=== PATIENT | female | born 1975 | race Two or more races ===

== ENCOUNTER 2017-11-24 07:58 | Day surgery (SDC) | payer OTHER ==
[2017-11-23 16:50] VITALS: BMI 24.6
--- NOTE | 2017-11-24 09:10 | HP ---
History & Physical Update - History History: No Change - Physical Physical: No Change - Assessment Assessment: No Change - Plan Plan: No Change (Patient with a nodule in right lobe of thyroid, highly suspiciousm for malignancy. Thyroid lobectomy , possible total thyroidectomy, with modified neck dissection, planned.)
[2017-11-24] MEDS ORDERED: ONDANSETRON 4 MG/2 ML VIAL IVPUSH PRN ×2 (09:29→12:02)
[2017-11-24] MEDS ORDERED: PROMETHAZINE HCL 25 MG/1 ML VIAL IVPUSH PRN (09:29)
[2017-11-24] MEDS ORDERED: PROMETHAZINE HCL 25 MG/1 ML VIAL IVPB PRN ×2 (09:39→12:02)
[2017-11-24] MEDS ORDERED: ACETAMINOPHEN INJECTION 100 ML IVPB ONE ×2 (11:11→12:21)
[2017-11-24] MEDS ORDERED: ACETAMINOPHEN 1000 MG/100 ML VIAL (NON FORMULARY) IVPB ONE (12:03)
--- NOTE | 2017-11-24 12:04 | OP ---
Operative Note - Note: Operative Date: 11/24/17 Pre-Operative Diagnosis: Thyroid nodule, ? suspicious for malignancy. Operation: Right thyroid lobectomy with frozen section. Use of Nervana nerve monitor. Findings: Large nodule at the right inferior pole if the thyroid gland, about 2 cms in diameter. Frozen section : Follicular neoplasm, wait for permanent section. Post-Operative Diagnosis: Same as Pre-op Surgeon: Catherine Saleem Anesthesiologist/REMOTE INPATIENT CODER: Landy Francisco Anesthesia: General Specimens Removed: Right lobe of thyroid, with isthmus. Estimated Blood Loss (mls): 20 Operative Report Dictated: Yes
[2017-11-24] MEDS ORDERED: IBUPROFEN 400 MG TABLET (FP) PO PRN (12:07)
[2017-11-24] MEDS ORDERED: LACTATED RINGERS SOLUTION 1,000 ML IV SCH (12:15)
--- NOTE | 2017-11-24 12:18 | SURG ---
Surgery Fur Tinter Note Fur Tinter: Landy Francisco PA-C Date of Service: 11/24/17 Diagnosis: Right thyroid nodule suspicious for malignancy Procedure: Right thyroid lobectomy with frozen section. Use of Nervana nerve monitor. I was present for the entirety of the operative procedure. For further detail, please refer to operative report. Visit type - Case Type Case Type: Scheduled Admission - Emergency Emergency Visit: No - New patient This patient is new to me today: Yes Date on this admission: 11/24/17
--- NOTE | 2017-11-24 13:16 | OP ---
DATE OF OPERATION: 11/24/2017 PREOPERATIVE DIAGNOSIS: Nodule in the right lobe of the thyroid suspicious for malignancy. POSTOPERATIVE DIAGNOSIS: Nodule in the right lobe of the thyroid suspicious for malignancy. OPERATIVE PROCEDURE: Right thyroid lobectomy with frozen section and use of Nervana nerve monitoring device. SURGEON: Catherine Saleem MD BRICKLAYER SEWER: MIKALA Thomas ANESTHESIA: General anesthesia. ANESTHESIOLOGIST: Quinn Hernandez MD OPERATIVE DESCRIPTION: This 42-year-old woman presented with a nodule in the right lobe of the thyroid. She had an FNA, which showed some atypia, and the ThyroSeq study suggested that this is a high probability of malignancy. The patient was brought in for right thyroid lobectomy with frozen section, possible total thyroidectomy, and neck dissection. Procedure was explained to the procedure with the risks, benefits, and complications including change in voice, recurrent laryngeal nerve weakness, and hypocalcemia as well as postoperative bleeding and hematoma. The patient was brought to the operating room. General anesthesia was administered with appropriate use of the endotracheal tube compatible with a Nervana nerve monitoring device. The patient was positioned in extension. The neck was painted and draped. A time-out was called. A horizontal skin incision was made 1 fingerbreadth over the clavicle from one sternocleidomastoid muscle to another. This was deepened inside the skin, subcutaneous tissue, and the platysma muscle. The superior and the inferior skin flaps were then raised between the platysma and the deep cervical fascia, superior lip of the hyoid bone, inferior and anterior below the clavicle on either side. The sternocleidomastoid muscle was freed from the flap on either side. The strap muscles were then divided in the midline from the hyoid bone down to the suprasternal notch. The right lobe of the thyroid was then exposed by retracting the strap muscles. The gland was then mobilized anteriorly and medially. The superior thyroid muscles were then divided as close to the gland as possible between clips and LigaSure. The middle thyroid vein was also divided between clips and the LigaSure. The inferior thyroid muscles were then divided as close to the gland as possible , again, between clips and the LigaSure. Scan was obtained to identify and preserve the blood supply to both superior and inferior parathyroid glands. The gland was then mobilized medially across the pretracheal fascial plane over to the left. The right recurrent laryngeal nerve was identified, preserved throughout its course. This was confirmed with stimulation with the Nervana nerve monitoring device with appropriate response to stimulation. The gland was then divided at the junction of the isthmus and the left lobe of the thyroid gland placing a clamp across it and dividing it. Specimen was sent to Pathology. Frozen section diagnosis was a follicular neoplasm. Wait for permanent section for further evaluation. The left lobe of the thyroid gland connected to the isthmus was then oversewn with 3-0 silk sutures. Hemostasis was satisfactory. A No. 10 flat J-P drain was left into the wound and brought out through a stab wound on the right side of the neck. The strap muscles were then approximated with interrupted 3-0 Vicryl sutures, platysma with buried interrupted 3-0 Vicryl sutures, and skin approximated continuous 4-0 Monocryl sutures. The drain was anchored with 3-0 Prolene sutures. Estimated blood loss was less than 20 mL. Sponge count and instrument count was correct. The patient was extubated and sent to the recovery room in satisfactory and stable condition. Claribel [id number] MTDD
[2017-11-24] MEDS: oxyCODONE HCL 5 MG TABLET PO PRN (18:04)
[2017-11-24] MEDS: ACETAMINOPHEN 325 MG TABLET (FP) PO PRN (18:05)
[2017-11-24] MEDS: LACTATED RINGERS SOLUTION 1,000 ML IV SCH ×2 (21:30→22:27)
[2017-11-25] MEDS: oxyCODONE HCL 5 MG TABLET PO PRN ×2 (01:10→09:53)
[2017-11-25] MEDS: ACETAMINOPHEN 325 MG TABLET (FP) PO PRN (01:11)
--- NOTE | 2017-11-25 10:31 | PN ---
Progress Note, Physician - Current Medication List Current Medications: Active Medications Acetaminophen (Tylenol -) 325 mg PO Q6H PRN PRN Reason: PAIN LEVEL 1-5 Last Admin: 11/25/17 01:11 Dose: 325 mg Lactated Ringer's (Lactated Ringers Solution) 1,000 mls @ 125 mls/hr IV ASDIR KALEIGH Last Admin: 11/24/17 13:30 Dose: 0 mls Ibuprofen (Motrin -) 400 mg PO Q6H PRN PRN Reason: FEVER Oxycodone HCl (Roxicodone -) 5 mg PO Q6H PRN PRN Reason: PAIN LEVEL 1-5 Last Admin: 11/25/17 09:53 Dose: 5 mg - Objective Vital Signs: Vital Signs Temperature 98.5 F 11/25/17 06:00 Pulse Rate 75 11/25/17 06:00 Respiratory Rate 20 11/25/17 06:00 Blood Pressure 113/59 11/24/17 16:20 O2 Sat by Pulse Oximetry (%) 100 11/24/17 21:00 Assessment/Plan Wound drainage 20 ml, serous. Drain is removed. Patient is comfortable, talking. She is explained the surgical procedure. Discharge home, follow up in my office.
[2017-11-25 11:44] VITALS: BP 141/74; PULSE 84; TEMP 98.4
--- NOTE | 2017-11-28 16:56 | PATH ---
Surgical Pathology Report Patient Name: BASSAM POLO [facility]. Rec. #: [id number] /Age/Gender: 1975 (Age: 42) / F Account: [id number] Location: AMBULATORY SURG Taken: 11/24/2017 Received: 11/24/2017 Reported: 11/28/2017 Physicians: Giuliana Saleem M.D. Specimen(s) Received RIGHT THYROID LOBE Clinical History Thyroid neoplasm Intraoperative Consult Diagnosis Thyroid, right, lobectomy: Follicular neoplasm. Defer to permanent sections for definitive classification. Ramses Nino M.D., 11/24/17 Final Diagnosis THYROID, RIGHT, LOBECTOMY (FS):FOLLICULAR ADENOMA, 2 CM (GROSS SIZE). SURGICAL MARGINS ARE NEGATIVE. REMAINDER OF THYROID PARENCHYMA SHOWS CHRONIC LYMPHOCYTIC THYROIDITIS. Comment: Suggest clinical/radiological and serologic correlation. Electronically Signed Ronna Kerns M.D. Gross Description Received fresh labeled "right lobe of thyroid," is a 13 g, 4.5 x 2.8 x 1.7 cm thyroid lobe. The outer capsule is red-brown and intact. Sectioning reveals a 2.0 x 2.0 x 1.8 cm well-circumscribed nodule abutting the outer capsule. The nodule does not appear to invade through the capsule. The cut surface of the nodule is evans and solid with focal hemorrhage. The remaining thyroid parenchyma is red-brown and beefy. A compliance representative section of the nodule is submitted for frozen section. The specimen is entirely and sequentially submitted in 9 cassettes, with the frozen section residue in cassette 1 and the nodule in cassettes 1-4. 11/24/2017 [facility]11/24/2017
== END 2017-11-25 11:38 | disposition home or self-care (01) ==
LOC: JASUSAT 07:58 → JASU-SURG 07:58 → J8W 13:35 → JASUSAT 11-25 11:38
PROVIDERS: ATTEND Specialist
PROC: 0GBH0ZZ Excision of Right Thyroid Gland Lobe, Open Approach (ICD-10-PCS; principal; 2017-11-24 10:00)
DX: D34 Benign neoplasm of thyroid gland (principal); E06.5 Other chronic thyroiditis
CPT/HCPCS: 36415; 84703; 86850; 86900; 86901; 88307-TC; 88331-TC; 94760

== ENCOUNTER 2019-02-01 13:46 | Emergency (ER) | payer OTHER ==
[2019-02-01 14:07] VITALS: TEMP 98.1; BMI 25.0
--- NOTE | 2019-02-01 15:10 | PDOC ---
History of Present Illness - General Chief Complaint: Pain, Acute Stated Complaint: LT. ABD. PAIN/ LT. LEG PAIN Time Seen by Provider: 02/01/19 15:03 - History of Present Illness Initial Comments: The pt is a 43F w/ no reported PMH who presents for 10 days of left flank pain and frequency associated with LUE and LLE pain. She states that she was seen by her PCP and was told she had a UTI for which she was prescribed abx which she finished. She does not recall the name of the antibiotic or her PCP. She denies associated fevers/chills, chest pain, SOB, N/V/C/D, dysuria, hematuria, blood in her stool. 02/01/19 15:07 Past History - Past Medical History Allergies/Adverse Reactions: Allergies Allergy/AdvReac Type Severity Reaction Status Date / Time No Known Drug Allergies Allergy Verified 02/01/19 14:04 Home Medications: Ambulatory Orders Sumatriptan Succinate [Imitrex -] 50 mg PO BID PRN 11/23/17 Ibuprofen [Motrin -] 400 mg PO TID #21 tablet 11/24/17 Ibuprofen [Motrin -] 400 mg PO TID #21 tablet 11/24/17 Oxycodone HCl/Acetaminophen [Percocet 5-325 mg Tablet -] 1 tab PO Q6H PRN #20 tablet MDD 3 11/24/17 Anemia: No Asthma: No Cancer: No Cardiac Disorders: No CVA: No COPD: No CHF: No Dementia: No Diabetes: No GI Disorders: No Disorders: No HTN: No Hypercholesterolemia: No Liver Disease: No Seizures: No Thyroid Disease: Yes (NODULE) - Surgical History Abdominal Surgery: No Appendectomy: No Cardiac Surgery: No Cholecystectomy: No Lung Surgery: No Neurologic Surgery: No Orthopedic Surgery: No - Immunization History Immunization Up to Date: Yes - Suicide/Smoking/Psychosocial Hx Smoking History: Never smoked Have you smoked in the past 12 months: No Hx Alcohol Use: No Drug/Substance Use Hx: No Substance Use Type: None Hx Substance Use Treatment: No Review of Systems - Review of Systems Able to Perform ROS?: Yes Comments:: GENERAL/CONSTITUTIONAL: No fever or chills. No weakness HEAD, EYES, EARS, NOSE AND THROAT: No change in vision. No ear pain or discharge. No sore throat CARDIOVASCULAR: No chest pain or shortness of breath RESPIRATORY: Denies cough, hemoptysis GASTROINTESTINAL: No nausea, vomiting, diarrhea or constipation MUSCULOSKELETAL: No joint or muscle swelling or pain. No neck or back pain SKIN: No rash NEUROLOGIC: No headache, vertigo, loss of consciousness ENDOCRINE: No increased thirst. No abnormal weight change HEMATOLOGIC/LYMPHATIC: No anemia, easy bleeding, or history of blood clots ALLERGIC/IMMUNOLOGIC: No hives or skin allergy 02/01/19 15:15 *Physical Exam - Vital Signs Last Vital Signs Temp Pulse Resp BP Pulse Ox 98.1 F 79 18 150/90 100 02/01/19 14:04 02/01/19 14:04 02/01/19 14:04 02/01/19 14:04 02/01/19 14:04 - Physical Exam Comments: GENERAL: Awake, alert, and oriented to person/place/time, in no acute distress HEAD: No signs of trauma, normocephalic, atraumatic EYES: PERRLA, EOMI, sclera anicteric, conjunctiva clear ENT: Hearing grossly normal, nares patent, oropharynx clear without exudates. Moist mucosa LUNGS: No distress, speaks full sentences, clear to auscultation bilaterally HEART: Regular rate and rhythm, normal S1 and S2, no murmurs appreciated, peripheral pulses normal and equal bilaterally ABDOMEN: Soft, nontender, normoactive bowel sounds. No guarding, no rebound EXTREMITIES: Normal inspection, Normal range of motion, no edema. No clubbing or cyanosis NEUROLOGICAL: Cranial nerves II through XII grossly intact. Normal speech, normal gait, no focal sensorimotor deficits SKIN: Warm, Dry 02/01/19 15:16 ED Treatment Course - LABORATORY CBC & Chemistry Diagram: 02/01/19 15:30 02/01/19 15:22 Medical Decision Making - Medical Decision Making ED Course [facility] 02/01/19 15:18 *DC/Admit/Observation/Transfer Diagnosis at time of Disposition: Abdominal pain Qualifiers: Abdominal location: unspecified location Qualified Code(s): R10.9 - Unspecified abdominal pain - Discharge Dispostion Disposition: HOME Condition at time of disposition: Stable Decision to Admit order: No - Referrals Referrals: Jose Juan Lock MD [Primary Care Provider] - - Patient Instructions Printed Discharge Instructions: DI for Abdominal Pain-Adult Additional Instructions: You were seen in the Emergency Department for evaluation of abdominal pain. Your labs were unremarkable and your imaging was negative for acute pathology. Review the handout provided at discharge. Follow up with your primary care provider. Return to the Emergency Department if you develop fevers/chills, chest pain, trouble breathing, vomiting, pain with urination, blood in your urine, worsening symptoms, or any new/concerning symptoms. Se lo atendi en el servicio de urgencias para evaluar el dolor abdominal. Senait laboratorios fueron normales y deal imagen fue negativa para patologa aguda. Revise el folleto provisto al momento del darling. Nahid un seguimiento con deal proveedor de atencin primaria. Regrese al Departamento de Emergencias si presenta fiebre / escalofros, dolor en el pecho, dificultad para respirar, vmitos, dolor al orinar, manolo en la orina, empeoramiento de los sntomas o sntomas nuevos o relacionados. Print Language: UPPER SORBIAN - Post Discharge Activity
[2019-02-01] MEDS ORDERED: ACETAMINOPHEN 1000 MG/100 ML VIAL (NON FORMULARY) IVPB ONE (15:16)
[2019-02-01] MEDS ORDERED: ACETAMINOPHEN INJECTION 100 ML IVPB ONE (15:50)
[2019-02-01 15:53] LABS: BASO % 0.8 % (0-2.0); EOS % 1.5 % (0-4.5); HEMOGLOBIN 13.2 GM/dL (10.7-15.3); LYMPH % 44.8 % (8-40); MCH 31.1 pg (25.7-33.7); MEAN CELL VOLUME 94.4 fl (80-96); MONO % 5.9 % (3.8-10.2); PLATELET COUNT 147 K/MM3 (134-434); RBC 4.24 M/mm3 (3.60-5.2); RDW 14.5 % (11.6-15.6); WHITE BLOOD COUNT 4.3 K/mm3 (4.0-10.0)
[2019-02-01] MEDS ORDERED: KETOROLAC TROMETHAMINE 30 MG/1 ML VIAL IVPUSH ONE (16:13)
[2019-02-01 16:33] LABS: ALBUMIN 3.4 g/dl (3.4-5.0); ALK PHOS 70 U/L (45-117); BILIRUBIN,TOTAL 0.2 mg/dL (0.2-1); BLOOD UREA NITROGEN 9 mg/dL (7-18); CALCIUM 8.6 mg/dL (8.5-10.1); CHLORIDE 105 mmol/L (98-107); CO2 32 mmol/L (21-32); CREATININE 0.7 mg/dL (0.55-1.3); GLUCOSE,RANDOM 87 mg/dL (74-106); SGPT/ALT 25 U/L (13-61); SODIUM 143 mmol/L (136-145); TOT PROT 7.3 g/dl (6.4-8.2)
[2019-02-01 16:34] LABS: ANION GAP 5 MMOL/L (8-16); POTASSIUM 4.1 mmol/L (3.5-5.1); SGOT/AST 31 U/L (15-37)
--- NOTE | 2019-02-01 16:45 | PDOC ---
Documentation entered by Malinda Ybarra SCRIBE, acting as scribe for Susan Giang MD. Susan Giang MD: This documentation has been prepared by the Amada escobar Daisy, SCRIBE, under my direction and personally reviewed by me in its entirety. I confirm that the documentation accurately reflects all work, treatment, procedures, and medical decision making performed by me. Attending Attestation - Resident Resident Name: Delta Delgado - ED Attending Attestation I have performed the following: I have examined & evaluated the patient, The case was reviewed & discussed with the resident, I agree w/resident's findings & plan - HPI HPI: 02/01/19 15:43 The patient is a 43 YOF with no PMH who presents to the ED for evaluation of persistent left flank pain. Patient was seen by her PCP earlier this week, told she had a UTI at that time, prescribed antibiotics with unknown name, and has completed the course. She is complaining of persistent left flank pain since with associated frequency. Denies dysuria or hematuria. Denies N/V/C/D. Allergies: NKDA - Physicial Exam PE: 02/01/19 16:22 ADULT EXAM GENERAL: Awake, alert, and fully oriented, in no acute distress NECK: Normal ROM, supple, no lymphadenopathy, JVD, or masses LUNGS: Breath sounds equal, clear to auscultation bilaterally. No wheezes, and no crackles HEART: Regular rate and rhythm, normal S1 and S2, no murmurs, rubs or gallops ABDOMEN: Soft, nondistended, nontender, normoactive bowel sounds. No guarding, no rebound. No masses. (+) Tenderness with deep palpation to the left upper quadrant. BACK: (+) Mild, left sided CVA tenderness. EXTREMITIES: Normal range of motion, no edema. No clubbing or cyanosis. No cords, erythema, or tenderness NEUROLOGICAL: Cranial nerves II through XII grossly intact. Normal speech, normal gait SKIN: Warm, Dry, normal turgor, no rashes or lesions noted. s - Medical Decision Making 02/01/19 16:36 Pt presents to the ED complaining of L sided pain that has been persistent for three days. + L sided upper abdominal tenderness and L CVA tenderness. Pain is most consistent with muscular pain given that it radiates into her leg, but nephrolithiasis is on the differential given her CVA tenderness. will check labs and give pain control, check US to evaluate for hydronephrosis and reassess.
[2019-02-01 16:47] LABS: PH,URINE 8.5 (5.0-8.0); URINE APPEARANCE TURBID; URINE BILIRUBIN NEGATIVE (NEGATIVE); URINE COLOR YELLOW; URINE GLUCOSE (UA) NEGATIVE (NEGATIVE); URINE KETONE NEGATIVE (NEGATIVE); URINE LEUK ESTERASE NEGATIVE (NEGATIVE); URINE NITRITE NEGATIVE (NEGATIVE); URINE PROTEIN NEGATIVE (NEGATIVE); URINE UROBILINOGEN 0.2 mg/dL (0.2-1.0)
[2019-02-01] MEDS ORDERED: KETOROLAC TROMETHAMINE 30 MG/1 ML VIAL ONE (17:11)
[2019-02-01 18:01] VITALS: BP 134/85; PULSE 70
== END 2019-02-01 18:01 | disposition home or self-care (01) ==
LOC: JER 13:46
PROC: 3E033NZ Introduction of Analgesics, Hypnotics, Sedatives into Peripheral Vein, Percutaneous Approach (ICD-10-PCS; principal; 2019-02-01)
PROC: 3E0333Z Introduction of Anti-inflammatory into Peripheral Vein, Percutaneous Approach (ICD-10-PCS; 2019-02-01)
DX: R10.9 Unspecified abdominal pain (principal); E07.9 Disorder of thyroid, unspecified
CPT/HCPCS: 36415; 76775-TC; 80053; 81003; 84703; 85025; 87086; 96374; 96375; 99283-25; J0131